=== PATIENT | male | born 1955 | race Hispanic/Latino ===

== ENCOUNTER 2018-05-18 10:24 | Day surgery (SDC) | payer OTHER ==
[2018-05-17 12:05] LABS: Urine Appearance CLEAR; Urine Bilirubin NEGATIVE (NEG); Urine Blood 3+ (NEG); Urine Color YELLOW; Urine Glucose NEGATIVE (NEG); Urine Protein NEGATIVE (NEG); Urine Specific Gravity 1.025 (1.005-1.030); Urine pH 5.5 (5.0-7.0)
[2018-05-17 12:15] LABS: Absolute Lymphocytes (CBC) 2.8 K/uL (0.7-4.9); Absolute Monocytes 0.8 K/uL (0.1-1.3); Absolute Neutrophil 9.8 K/uL (1.8-8.0); Basophils % 0.5 % (0-1.3); Eosinophils % 0.8 % (0-4.4); Hematocrit 46.2 % (39.6-49.0); Lymphocytes % 20.8 % (15.3-44.8); MCH 29.6 pg (27.0-35.0); MCV 87.3 fL (80-100); MPV 9.1 fL (7.6-11.3); Monocytes % 6.2 % (3.3-12.3)
[2018-05-17 12:18] LABS: Protime INR 0.99
[2018-05-17 12:19] LABS: Phosphorus 3.1 mg/dL (2.5-4.9); Potassium 4.6 mmol/L (3.5-5.1); Uric Acid 5.7 mg/dL (3.5-7.2)
--- NOTE | 2018-05-17 12:21 | RAD REPORT ---
EXAM DESCRIPTION: RAD - Chest Pa And Lat (2 Views) - 05/17/2018 12:11 pm CLINICAL HISTORY: Preop chest examination, pending kidney stone treatment COMPARISON: None. TECHNIQUE: PA and lateral views of the chest were obtained. FINDINGS: The lungs are clear of focal infiltrate, mass or failure finding. Interstitial markings ar e mildly prominent suspected to be baseline. Trachea is midline. Heart size is normal and central v asculature is within normal limits. No pleural effusion or pneumothorax seen. No acute bony finding noted. No aortic abnormality. IMPRESSION: No acute cardiopulmonary process.
[2018-05-17 12:39] LABS: Urine Microscopic Reflex ORDER UMIC
[2018-05-17 12:40] LABS: Urine Bacteria <20 /HPF (NONE SEEN); Urine Culture Reflex Order NOT NEEDED; Urine RBC >50 /HPF (NONE SEEN)
--- NOTE | 2018-05-17 16:21 | EKG ---
Test Date: 2018-05-17 Test Time: 11:59:40 Lasting Machine Operator: ERIKA MEASUREMENT RESULTS: Intervals: Rate: 60 [place]: 170 QRSD: 80 QT: 396 QTc: 396 [place]: P: 47 [place]: 170 QRS: 61 T: 49 INTERPRETIVE STATEMENTS: Normal sinus rhythm Normal ECG No previous ECG available for comparison Electronically Signed On 05-17-18 16:20:26 CDT by Wild Garcia
[2018-05-18] MEDS ORDERED: Ringers Lactate 1,000 ML IV ONE (10:39)
[2018-05-18] MEDS ORDERED: GENTAMICIN 100 MG/100 ML BAG 100 MG/100 ML BAG IV ONE (10:39)
--- NOTE | 2018-05-18 11:04 | RAD REPORT ---
EXAM DESCRIPTION: RAD - Abdomen 1 View (KUB) - 05/18/2018 10:58 am CLINICAL HISTORY: pre op Pain COMPARISON: No comparisons FINDINGS: The bowel gas pattern is non-obstructive. No evidence of free air or pneumatosis. Curvilin ear calcification is seen to the right of the L3 transverse process, likely representing a stone in t he proximal right ureter.
[2018-05-18] MEDS ORDERED: MIDAZOLAM HCL 2 MG/2 ML INJ ONE (12:54)
[2018-05-18] MEDS ORDERED: FENTANYL CITR 100 MCG/2 ML ONE (12:55)
[2018-05-18] MEDS ORDERED: PROPOFOL 200 MG/20 ML VIAL IV ONE (13:04)
[2018-05-18] MEDS ORDERED: LIDOCAINE 2% MPF 5 ML VIAL ONE (13:07)
[2018-05-18] MEDS ORDERED: DEXAMETHASONE 10 MG/ML VIAL ONE (13:15)
[2018-05-18] MEDS ORDERED: KETOROLAC 30 MG/ML INJ ONE (13:38)
[2018-05-18] MEDS ORDERED: ONDANSETRON HCL 40 MG/20 ML VIAL ONE (13:39)
== END 2018-05-18 15:05 | disposition home or self-care (01) ==
LOC: OR 10:24
PROVIDERS: ATTEND Urology
PROC: 0TF3XZZ Fragmentation in Right Kidney Pelvis, External Approach (ICD-10-PCS; principal; 2018-05-18 13:45)
DX: N20.0 Calculus of kidney (principal); N42.9 Disorder of prostate, unspecified; K21.9 Gastro-esophageal reflux disease without esophagitis; F17.200 Nicotine dependence, unspecified, uncomplicated
CPT/HCPCS: 36415; 50590; 71046; 74018; 80048; 81003; 81015; 82330; 84100; 84550; 85025; 85610; 85730; 87086; 87088; 93005; J1100; J1580; J2250; J2405; J3010